=== PATIENT | female | born 1990 | race American Indian/Alaskan Native ===

== ENCOUNTER 2020-05-13 21:41 | Outpatient (CLI) | payer OTHER, MEDICAID ==
[2020-05-13 22:15] VITALS: BP 116/73
[2020-05-13] MEDS ORDERED: LACTATED RINGERS 1,000 ML IV ONE (22:57)
[2020-05-13 23:23] LABS: Bacteria,Urine 1+ /HPF (Negative); Bilirubin,Urine NEG (Negative); Blood,Urine NEG (Negative); Color,Urine Yellow (Yellow); Mucus,Urine FEW /HPF; Protein,Urine <15 mg/dL mg/dL (Negative); Urobilinogen,Urine < 2.0 mg/dL (<2.0)
== END 2020-05-14 00:21 | disposition home or self-care (01) ==
LOC: TRG 21:41 → APU 21:50 → TRG 05-14 00:21
PROVIDERS: ATTEND Obstetrics & Gynecology
DX: O26.892 Other specified pregnancy related conditions, second trimester (principal); R10.9 Unspecified abdominal pain; Z3A.21 21 weeks gestation of pregnancy
CPT/HCPCS: 59025; 81001